=== PATIENT | female | born 1960 | race American Indian/Alaskan Native ===

== ENCOUNTER 2017-03-26 04:23 | Emergency (ER) | payer OTHER ==
[2017-03-26 07:03] LABS: Hematocrit 39.3 % (30.3-42.9); Mean Corpuscular HGB Conc 33 % (30-34); Mean Corpuscular Hemoglobin 30 pg (28-32); Mean Corpuscular Volume 90 fl (79-97); Platelet Count 257 K/mm3 (140-440); Red Blood Count 4.36 M/mm3 (3.65-5.03); Red Cell Distribution Width 12.7 % (13.2-15.2); White Blood Count 4.3 K/mm3 (4.5-11.0)
[2017-03-26 07:15] LABS: Alanine Aminotransferase 11 units/L (7-56); Albumin 3.8 g/dL (3.9-5); Albumin/Globulin Ratio 1.1 %; Alkaline Phosphatase 73 units/L (35-129); Anion Gap 18 mmol/L; Blood Urea Nitrogen 12 mg/dL (7-17); Calcium 9.1 mg/dL (8.4-10.2); Carbon Dioxide 28 mmol/L (22-30); Chloride 99.7 mmol/L (98-107); Glucose 113 mg/dL (65-100); Potassium 3.2 mmol/L (3.6-5.0); Sodium 142 mmol/L (137-145); Total Protein 7.3 g/dL (6.3-8.2)
[2017-03-26 07:56] LABS: Basophils % (Manual) 0 % (0.0-1.8); Blastocytes % (Manual) 0 %; Eosinophils % (Manual) 0 % (0.0-4.3)
[2017-03-26 07:57] LABS: Diff Status Complete; RBC Morphology Normal
--- NOTE | 2017-03-26 08:41 | Emergency Department Report ---
ED General Adult HPI - General Chief complaint: Chest Pain Stated complaint: CHEST PAIN/FEVER/NAUSEA Time Seen by Provider: 03/26/17 08:21 Source: patient Mode of arrival: Ambulatory Limitations: No Limitations - History of Present Illness Initial comments: The patient states that she has pain in her right costal area. Pain of shelli appears to be in the lower right costal cartilage area. It is not in her chest proper. It is not in her right lower quadrant. It is essentially at the juncture of these areas. She states that she has had this problem before. She is denying fever to me she is denying nausea or vomiting. She states that she has has had a recent gallbladder ultrasound which showed gallstones. This was for evaluation of this very same pain. She states that the pain is related to her gallstones. She has seen a surgeon who recommends cholecystectomy. At the time of my encounter she is not complaining of any pain at all. She's not had any dyspnea nor any pleuritic pain. She states she is able to eat. She denies cough. -: month(s) Location: right (as above described) Radiation: non-radiation ( as above described) Quality: aching Consistency: now resolved Improves with: none Worsens with: none Associated Symptoms: denies other symptoms Treatments Prior to Arrival: none - Related Data Previous Rx's Medication Instructions Recorded Last Taken Type Pantoprazole [Protonix] 40 mg PO QDAY #30 tablet 02/28/16 Unknown Rx traMADol [Ultram] 50 mg PO Q6HR PRN #14 tablet 03/26/17 Unknown Rx Allergies Allergy/AdvReac Type Severity Reaction Status Date / Time latex Allergy Itching Verified 03/26/17 04:56 ED Review of Systems ROS: Stated complaint: CHEST PAIN/FEVER/NAUSEA Other details as noted in HPI Constitutional: denies: chills, fever Eyes: denies: eye pain, eye discharge, vision change ENT: denies: ear pain, throat pain Respiratory: denies: cough, shortness of breath, wheezing Cardiovascular: as per HPI. denies: palpitations Endocrine: no symptoms reported Gastrointestinal: as per HPI. denies: nausea, diarrhea Genitourinary: denies: urgency, dysuria, discharge Musculoskeletal: denies: back pain, joint swelling, arthralgia Skin: denies: rash, lesions Neurological: denies: headache, weakness, paresthesias Psychiatric: denies: anxiety, depression Hematological/Lymphatic: denies: easy bleeding, easy bruising ED Past Medical Hx - Past Medical History Previous Medical History?: Yes Hx Hypertension: Yes - Surgical History Past Surgical History?: Yes Additional Surgical History: right bunion surgery 01/05/17 - Social History Smoking Status: Never Smoker - Medications Home Medications: Home Medications Medication Instructions Recorded Confirmed Last Taken Type Pantoprazole [Protonix] 40 mg PO QDAY #30 tablet 02/28/16 Unknown Rx traMADol [Ultram] 50 mg PO Q6HR PRN #14 tablet 03/26/17 Unknown Rx ED Physical Exam - General Limitations: No Limitations General appearance: alert, in no apparent distress - Head Head exam: Present: atraumatic, normocephalic - Eye Eye exam: Present: normal appearance - ENT ENT exam: Present: mucous membranes moist - Neck Neck exam: Present: normal inspection - Respiratory Respiratory exam: Present: normal lung sounds bilaterally, chest wall tenderness (there is reproducible tenderness over the right lower anterior costal area). Absent: respiratory distress - Cardiovascular Cardiovascular Exam: Present: regular rate, normal rhythm. Absent: systolic murmur, diastolic murmur, rubs, gallop - GI/Abdominal GI/Abdominal exam: Present: soft, normal bowel sounds. Absent: distended, tenderness, guarding, rebound, rigid, organomegaly, mass, bruit, pulsatile mass , hernia - Extremities Exam Extremities exam: Present: normal inspection - Back Exam Back exam: Present: normal inspection. Absent: CVA tenderness (R), CVA tenderness (L), muscle spasm, paraspinal tenderness, vertebral tenderness - Neurological Exam Neurological exam: Present: alert, oriented X3, CN II-XII intact. Absent: motor sensory deficit - Psychiatric Psychiatric exam: Present: normal affect, normal mood - Skin Skin exam: Present: warm, dry, intact, normal color. Absent: rash ED Course Vital Signs 03/26/17 04:58 Temperature 98.2 F Pulse Rate 81 Respiratory 18 Rate Blood Pressure 125/87 O2 Sat by Pulse 97 Oximetry - Reevaluation(s) Reevaluation #1: The patient has some costal tenderness. She has a totally benign abdominal exam. Alert functions are normal her labs are normal with the exception of her potassium which is slightly elevated and a bit of lymphocyte predominance. She does not have any evidence of an acute chest syndrome. She does not have any evidence of cholecystitis. Her pain is associated with chest wall tenderness. I think she is appropriate for outpatient follow-up and management. I can see the benefit of further emergency department workup at this time. 03/26/17 08:40 ED Medical Decision Making - Lab Data Result diagrams: 03/26/17 06:00 03/26/17 06:00 Critical care attestation.: If time is entered above; I have spent that time in minutes in the direct care of this critically ill patient, excluding procedure time. ED Disposition Clinical Impression: Chest wall pain, Gallstones, Hypokalemia Disposition: - TO HOME OR SELFCARE Is pt being admited?: No Does the pt Need Aspirin: No Condition: Stable Instructions: Chest Pain (ED), Costochondritis (ED), Biliary Colic (ED), Hypokalemia (ED) Additional Instructions: Return as needed any recurrent symptoms or acute change. Follow-up with primary care and neurosurgeon. Rx as needed for pain. Return any significant or atypical discomfort. Prescriptions: traMADol [Ultram] 50 mg PO Q6HR PRN #14 tablet PRN Reason: Pain Referrals: PRIMARY CARE,MD [Primary Care Provider] - 3-5 Days usual, surgeon [Other] - 3-5 Days Time of Disposition: 08:43
[2017-03-26 09:08] VITALS: BP 137/92
== END 2017-03-26 09:11 | disposition home or self-care (01) ==
LOC: ED 04:23
DX: K80.80 Other cholelithiasis without obstruction (principal); E87.6 Hypokalemia; R07.89 Other chest pain; I10 Essential (primary) hypertension; Z91.040 Latex allergy status
CPT/HCPCS: 36415; 80053; 83690; 84484; 85007; 85025; 93005; 93010; 99284

== ENCOUNTER 2017-11-09 22:31 | Emergency (ER) | payer OTHER ==
[2017-11-10 00:58] LABS: Basophils % (Auto) 0.1 % (0.0-1.8); Eosinophils # (Auto) 0.1 K/mm3 (0.0-0.4); Eosinophils % (Auto) 1.8 % (0.0-4.3); Hematocrit 41.4 % (30.3-42.9); Hemoglobin 13.5 gm/dl (10.1-14.3); Lymphocytes # (Auto) 1.7 K/mm3 (1.2-5.4); Lymphocytes % (Auto) 23.3 % (13.4-35.0); Mean Corpuscular HGB Conc 33 % (30-34); Mean Corpuscular Hemoglobin 30 pg (28-32); Mean Corpuscular Volume 91 fl (79-97); Monocytes # (Auto) 0.7 K/mm3 (0.0-0.8); Monocytes % (Auto) 9.1 % (0.0-7.3); Platelet Count 271 K/mm3 (140-440); Red Blood Count 4.54 M/mm3 (3.65-5.03)
[2017-11-10 01:14] LABS: Alanine Aminotransferase 13 units/L (7-56); BUN/Creatinine Ratio 10; Blood Urea Nitrogen 10 mg/dL (7-17); Hemolysis Index 5
[2017-11-10 02:12] LABS: Amorphous Crystals,Urine Few; Bilirubin,Urine NEG (Negative); Blood,Urine SM (Negative); Calcium Oxalate Crystals,Urine 2+; Color,Urine Yellow (Yellow); Mucus,Urine FEW /HPF; Protein,Urine <15 mg/dL mg/dL (Negative); Urobilinogen,Urine < 2.0 mg/dL (<2.0)
[2017-11-10 02:40] LABS: WBC,Urine < 1.0 /HPF (0.0-6.0)
[2017-11-10] MEDS ORDERED: NORCO 7.5/325 PO ONE (03:31)
[2017-11-10] MEDS ORDERED: ZOFRAN ODT PO ONE (03:31)
--- NOTE | 2017-11-10 04:29 | Cat Scan Report ---
FINAL REPORT EXAM: CT ABDOMEN PELVIS WO CON HISTORY: right flank pain when she urinates TECHNIQUE: CT images obtained through the Abdomen and Pelvis without contrast. Transaxial,coronal and sagittal reformats are provided. PRIORS: None. FINDINGS: Imaged intrathoracic contents are unremarkable. There is mild right hydroureteronephrosis due to a 1 millimeter ureterovesical junction obstructing stone on axial series 3, image 160. Kidneys are normal in size, axis and position. No additional stones seen in the right or left collecting system. No left-sided hydroureteronephrosis. Retroverted uterus. Pelvic phleboliths are noted. No significant free fluid in the pelvis. Cholecystectomy. The liver, pancreas, spleen, and adrenal glands demonstrate a normal noncontrast appearance. Hollow enteric organs are normal in course and caliber. The appendix is predominantly air-filled and within normal limits. No periappendiceal inflammatory findings. No intra-abdominal free air/fluid or lymphadenopathy. Aorta is normal in course and caliber. Superficial soft tissues are unremarkable. No acute or aggressive appearing skeletal findings. IMPRESSION: Mild right hydroureteronephrosis due to a 1 millimeter ureterovesical junction obstructing stone.
--- NOTE | 2017-11-10 06:11 | Emergency Department Report ---
- General Chief complaint: Abdominal Pain Stated complaint: FREQUENT URINATION Time Seen by Provider: 11/10/17 03:26 Source: patient Mode of arrival: Ambulatory Limitations: No Limitations - History of Present Illness Initial comments: Patient is a 57-year-old black female who is presenting with his of pain when she urinates. The pain is not dysuria but she has a pressure sensation in her right flank whenever she urinates. Patient saw her physician or [facility] personal physician in several days ago and was told that her urinalysis will be ready to be interpreted tomorrow her patient states that the symptoms are worsening as she came in here today. Patient also states she has some urinary frequency as well as well as 2 episodes of nausea vomiting today. Patient rates the pain at a 10 out of 10. However patient is relatively comfortable she is telling me her history Severity scale (0 -10): 9 - Related Data Previous Rx's Medication Instructions Recorded Last Taken Type Pantoprazole [Protonix] 40 mg PO QDAY #30 tablet 02/28/16 Unknown Rx Ciprofloxacin HCl [Cipro] 500 mg PO BID #14 tablet 11/10/17 Unknown Rx Ondansetron [Zofran Odt] 4 mg PO Q8HR PRN #10 tab.rapdis 11/10/17 Unknown Rx traMADol [Ultram 50 MG tab] 50 mg PO Q6HR PRN #14 tablet 11/10/17 Unknown Rx Allergies Allergy/AdvReac Type Severity Reaction Status Date / Time latex Allergy Itching Verified 03/26/17 04:56 ED Review of Systems ROS: Stated complaint: FREQUENT URINATION Other details as noted in HPI Comment: All other systems reviewed and negative ED Past Medical Hx - Past Medical History Previous Medical History?: Yes Hx Hypertension: Yes - Surgical History Past Surgical History?: Yes Hx Cholecystectomy: Yes (2017) Additional Surgical History: right bunion surgery 01/05/17 - Social History Smoking Status: Never Smoker Substance Use Type: None - Medications Home Medications: Home Medications Medication Instructions Recorded Confirmed Last Taken Type Pantoprazole [Protonix] 40 mg PO QDAY #30 tablet 02/28/16 Unknown Rx Ciprofloxacin HCl [Cipro] 500 mg PO BID #14 tablet 11/10/17 Unknown Rx Ondansetron [Zofran Odt] 4 mg PO Q8HR PRN #10 tab.rapdis 11/10/17 Unknown Rx traMADol [Ultram 50 MG tab] 50 mg PO Q6HR PRN #14 tablet 11/10/17 Unknown Rx ED Physical Exam - General Limitations: No Limitations General appearance: alert, in no apparent distress - Head Head exam: Present: atraumatic, normocephalic - Eye Eye exam: Present: normal appearance - ENT ENT exam: Present: mucous membranes moist - Neck Neck exam: Present: normal inspection - Respiratory Respiratory exam: Present: normal lung sounds bilaterally. Absent: respiratory distress, wheezes, rales - Cardiovascular Cardiovascular Exam: Present: regular rate, normal rhythm. Absent: systolic murmur, diastolic murmur, rubs, gallop - GI/Abdominal GI/Abdominal exam: Present: soft, normal bowel sounds - Extremities Exam Extremities exam: Present: normal inspection - Back Exam Back exam: Present: normal inspection - Neurological Exam Neurological exam: Present: alert, oriented X3 - Psychiatric Psychiatric exam: Present: normal affect, normal mood - Skin Skin exam: Present: warm, dry, intact, normal color. Absent: rash ED Course Vital Signs 11/10/17 11/10/17 00:29 03:06 Temperature 98.4 F Pulse Rate 116 H Respiratory 18 18 Rate Blood Pressure 156/96 O2 Sat by Pulse 97 99 Oximetry ED Medical Decision Making - Lab Data Result diagrams: 11/10/17 00:48 11/10/17 00:48 - Radiology Data Radiology results: report reviewed CT of the abdomen and pelvis shows a 1 mm stone at the UVJ with hydronephrosis. Critical care attestation.: If time is entered above; I have spent that time in minutes in the direct care of this critically ill patient, excluding procedure time. ED Disposition Clinical Impression: Hydronephrosis Qualifiers: Hydronephrosis type: with ureteral calculous obstruction Qualified Code(s): N13.2 - Hydronephrosis with renal and ureteral calculous obstruction Disposition: DC-01 TO HOME OR SELFCARE Is pt being admited?: No Does the pt Need Aspirin: No Condition: Stable Instructions: Kidney Stones (ED) Prescriptions: Ciprofloxacin HCl [Cipro] 500 mg PO BID #14 tablet Ondansetron [Zofran Odt] 4 mg PO Q8HR PRN #10 tab.rapdis PRN Reason: Nausea traMADol [Ultram 50 MG tab] 50 mg PO Q6HR PRN #14 tablet PRN Reason: Pain Referrals: LUCA MARTE MD [Staff Physician] - as needed
[2017-11-10 06:30] VITALS: BP 109/67
== END 2017-11-10 06:31 | disposition home or self-care (01) ==
LOC: ED 22:31
DX: N13.30 Unspecified hydronephrosis (principal); I10 Essential (primary) hypertension; Z91.040 Latex allergy status
CPT/HCPCS: 36415; 74176; 80053; 81001; 85025; 99284; Q0162